=== PATIENT | male | born 1960 | race Caucasian/White ===

== ENCOUNTER 2017-11-18 22:00 | Emergency (ER) | END 2017-11-19 05:39 | disposition home or self-care (01) ==

== ENCOUNTER 2018-09-09 16:07 | Emergency (ER) | payer OTHER ==
[~2018-09-09] VITALS: Ht 12.7 cm; Wt 7.0 kg
[~2018-09-09 16:07] MED LIST: HYDR-3980 PO; LEVO750T25 PO
[2018-09-09 16:16] VITALS: Ht 12.7 cm; Wt 7.0 kg
[2018-09-09] MEDS ORDERED: KETOROLAC 15 MG INJ IM STA (17:47)
--- NOTE | 2018-09-09 17:47 | ERD ---
ER Documentation Chief Complaint Chief Complaint RT WRIST PAIN AFTER FALL 1 WEEK AGO. HPI 57-year-old male, with history of diabetes and hypertension, presents to the emergency department, complaining of persistent right wrist pain for a week after sustaining a ground-level fall, landing with a hyper stretched hand. Pain is dull, constant, 7/10. ROS All systems reviewed and are negative except as per history of present illness. Medications Home Meds Active Scripts Levofloxacin* (Levaquin*) 750 Mg Tablet, 750 MG PO DAILY for 10 Days, TAB Prov:LOPEZ LOVE. DO 11/19/17 Hydrocodone/Acetaminophen ([place] 10-325 Tablet) 1 Each Tablet, 1 TAB PO Q6H PRN for PAIN, #20 TAB Prov:KEVYNOSOCTAVIOSTOLOS A. DO 11/19/17 Allergies Allergies: Coded Allergies: No Known Allergy (Unverified , 09/09/18) PMhx/Soc Medical and Surgical Hx: pt denies Surgical Hx History of Surgery: No Hx Cardiac Disorders: Yes (HTN, DYSLIPIDEMIA) Hx Miscellaneous Medical Probl: Yes (HTN, High Chol, DM) Hx Alcohol Use: Yes Hx Substance Use: No Hx Tobacco Use: No Smoking Status: Never smoker FmHx Family History: diabetes; No coronary disease Physical Exam Vitals Vital Signs Date Temp Pulse Resp B/P (MAP) Pulse Ox O2 O2 Flow FiO2 Time Delivery Rate 09/09/18 98.0 79 18 176/99 100 16:16 (124) Physical Exam Const: No acute distress Head: Atraumatic Eyes: Normal Conjunctiva ENT: Normal External Ears, Nose and Mouth. Neck: Full range of motion. No meningismus. Resp: Clear to auscultation bilaterally Cardio: Regular rate and rhythm, no murmurs Abd: Soft, non tender, non distended. Normal bowel sounds Skin: No petechiae or rashes Back: No midline or flank tenderness Ext: Right wrist: Significant edema and ecchymosis in the dorsal area, decreased range of motion due to pain. Normal pulses, capillary refill less than 2 seconds, neurovascular exam intact. Neur: Awake and alert Psych: Normal Mood and Affect Results 24 hrs Current Medications Medications Dose Sig/Nuris Start Time Status Last (Trade) Ordered Route PRN Stop Time Admin Dose Reason Admin Ketorolac 15 mg ONCE STAT 09/09/18 DC 09/09/18 Tromethamine IM 17:47 09/09/18 17:53 (Toradol) 17:50 DIAGNOSTIC IMAGING REPORT Patient: KOFI OROSCO : 1960 Age: 57 Sex: M MR #: [id number] [facility] #: [id number] DOS: 09/09/18 1740 Ordering MD: LINN PIERRE MD Location: [facility] Room/Bed: PROCEDURE: XR Wrist. CLINICAL INDICATION: Right wrist pain TECHNIQUE: 3 views of the right wrist were performed. COMPARISON: No prior studies are available for comparison. FINDINGS: There is an acute comminuted impacted and slightly volarly angulated distal radial metaphysis fracture with probable nondisplaced intra-articular extension. There is also an acute mildly displaced ulnar styloid fracture. There is a remote healed first metacarpal base fracture. There is diffuse soft tissue swelling. IMPRESSION: 1. Acute comminuted impacted and slightly volarly angulated distal radius fracture as above. 2. Acute mildly displaced ulnar styloid fracture. 3. Chronic healed first metacarpal base fracture. RPTAT: [facility]U .Robin Cardozo MD, MD Date Time Electronically viewed and signed by .Robin Cardozo MD, MD on 09/09/2018 18:44 .K/ CC: LINN PIERRE MD [phone] Procedures/MDM Differential diagnosis considered include but not limited are: sprain/strain, ligament injury, fracture, dislocation, low suspicion for acute infectious process. Soft compartments, neurovascular exam grossly intact. Physical examination and clinical presentation consistent with right distal radial and ulnar fracture. During the ED course the patient received treatment with short arm posterior splint and sling presenting overall improvement of the symptoms. Splint evaluation: Type: Short arm posterior Location: Right upper extremity Position: good alignment in anatomical position Neurovascular intact Results and clinical impression discussed with patient who agrees with managemen t. The patient is stable to be treated outpatient and will be discharged home with recommendations for Ortho evaluation LOR, meanwhile, ice, rest and partial immobilization. NSAIDs 3 times daily for 5 days and close monitoring. The patient was instructed to follow up with the primary care provider in the next 48h. If symptoms persist, worsen or new symptoms develop, then patient should return to the ED immediately. Instructions explained and given to patient with acknowledgment and demonstrated understanding. Disclaimer: Inadvertent spelling and grammatical errors are likely due to EHR/dictation software use and do not reflect on the overall quality of patient care. Also, please note that the electronic time recorded on this note does not necessarily reflect the actual time of the patient encounter. Departure Diagnosis: Primary Impression: Distal radius fracture, right Additional Impression: Right distal ulnar fracture Condition: Stable Additional Instructions: Muchas ant por [facility] para zapien servicio. Esperamos que en zapien visita a la lidia de emergencia zapien problema medico haya sido solucionado y que se sienta mucho mejor. Para estar seguros que zapien mejoria sigue en proceso, le pedimos el favor de hacer sean una de seguimiento medico con zapien doctor primario en los proximos 2-4 allen. Lleve con usted estos documentos y las medicinas recetadas. Si liban sintomas empeoran, NO SE ESPERE, por favor regrese a lidia de emergencia INMEDIATAMENTE. En laurie que usted no tenga un mdico de atencin primaria: Llame al mdico o clnica comunitaria de referencia que aparece abajo satinder las horas de consultorio para hacer sean una para que le vean. CLINICAS: [facility] [phone] [id number] [facility] [phone] [facility] [phone] [id number] [facility] [phone] [place] [phone] [id number] [facility]. [phone] LINN LAL MD Sep 09, 2018 17:47
[2018-09-09] MEDS ORDERED: ACET325T33 PO (19:15)
[2018-09-09] MEDS ORDERED: IBUP-1561 PO (19:15)
[2018-09-09 19:30] VITALS: BP 162/100; PULSE 70; RESP 18
== END 2018-09-09 19:31 | disposition home or self-care (01) ==
LOC: FTE 16:07
DX: S52.501A Unspecified fracture of the lower end of right radius, initial encounter for closed fracture (principal); E11.9 Type 2 diabetes mellitus without complications; I10 Essential (primary) hypertension; S52.611A Displaced fracture of right ulna styloid process, initial encounter for closed fracture; W18.39XA Other fall on same level, initial encounter; Y92.9 Unspecified place or not applicable
CPT/HCPCS: 29125; 73110; 73130; 96372; J1885; Z7502